=== PATIENT | male | born 1995 | race African-American/Black ===

== ENCOUNTER 2019-03-26 13:37 | Emergency (ER) | payer OTHER ==
[2019-03-26 15:09] LABS: Bacteria/HPF None Seen HPF (None Seen); Bilirubin Negative (Negative); Blood, Urine Negative (Negative); Clarity Clear (Clear); Glucose, Urine (Dipstick) 30 mg/dL (Negative); Leukocyte 25 Leu/uL (Negative); Mucous/LPF Rare LPF (<2+); Nitrite Negative (Negative); Protein, Urine (Dipstick) Negative (Neg-Trace); Squamous Epithelial 0-3 HPF (0-3); Urobilinogen Normal mg/dL (Less than 2)
[2019-03-26] MEDS ORDERED: Lidocaine 1% PF 5 ML VIAL ONE (15:29)
[2019-03-26] MEDS ORDERED: cefTRIAXone\\ROCEPHIN 250 MG VIAL ONE (15:29)
[2019-03-26] MEDS ORDERED: Azithromycin 250 MG TAB ONE (15:29)
[2019-03-28 21:13] LABS: Chlam.trachomatis by PCR,Urine Not Detected (NotDetected)
== END 2019-03-26 15:15 | disposition home or self-care (01) ==
LOC: ERS 13:37
DX: N34.2 Other urethritis (principal)
CPT/HCPCS: 81003; 81015; 87491; 87591; 96372; 99283; J0696; J2001